=== PATIENT | male | born 1960 | race African-American/Black ===

== ENCOUNTER → 2023-04-29 | Day surgery (SDC) | payer MEDICARE, BC ==
[~2023-04-29] VITALS: Ht 177.8 cm; Wt 124.7 kg
[~2023-04-29] MED LIST: ALLO300T2 PO; AMLO5TAB4 PO; BACITRACIN 14GM TUBE TOP ONE; CEFAZOLIN SODIUM 1000MG/VIAL ONE; CELE50CA PO; CHLO25TA2 PO; DEXAMETHASONE 4MG/ML 1ML VIAL ONE; ETOMIDATE 2MG/ML 10ML VIAL IV ONE; FENTANYL CITRATE/PF 50MCG/ML 2ML VIAL ONE; FINA-37 PO; GLYCOPYRROLATE 0.2 MG/ML 2ML VIAL ONE; KETOROLAC 30MG/ML VIAL ONE; MEPERIDINE HCL/PF 25MG/ML CPJ IV PRN; MIDAZOLAM HCL 2 MG/2 ML VIAL ONE; OMEP20TA15 PO; ONDANSETRON HCL 4MG/2ML INJ ONE; ROCURONIUM BROMIDE 10MG/ML VIAL 5ML IV ONE; VECURONIUM BROMIDE 10 MG/VIAL IV ONE
[2023-04-29] MEDS: LACTATED RINGERS 1,000 ML IV SCH (10:35)
[2023-04-29] MEDS: FENTANYL CITRATE/PF 50MCG/ML 2ML VIAL IV PRN (16:07)
[2023-04-29] MEDS: ONDANSETRON HCL 4MG/2ML INJ IV PRN (16:07)
[2023-04-29] MEDS: HYDROMORPHONE HCL/PF 2MG/ML CPJ IV PRN (17:01)
[2023-04-29] MEDS: OXYBUTYNIN CHLORIDE 5MG TABLET PO NR (17:28)
[2023-04-29] MEDS: THROAT LOZENGES-BENZOCAINE/MENTH/CETYLPYRD CL LOZENGES MM NR (17:28)
[2023-04-29 17:58] VITALS: BP 159/77; PULSE 98; RESP 15
== END | disposition home or self-care (01) ==
LOC: OR 09:35
PROVIDERS: ATTEND Urology
DX: C61 Malignant neoplasm of prostate (principal); I25.2 Old myocardial infarction; I10 Essential (primary) hypertension; K21.9 Gastro-esophageal reflux disease without esophagitis; G47.30 Sleep apnea, unspecified; Z86.73 Personal history of transient ischemic attack (TIA), and cerebral infarction without residual deficits; Z79.899 Other long term (current) drug therapy; Z98.890 Other specified postprocedural states
CPT/HCPCS: 55880; J3010; J8499; J0690; J1100; J3490 ×4; J1885; J2250; J2405; J1170; A4217; Z7610 ×16